=== PATIENT | female | born 1990 | race Caucasian/White ===

== ENCOUNTER 2017-02-10 21:30 | Emergency (ER) | payer OTHER ==
[~2017-02-10] VITALS: Ht 167.6 cm; Wt 61.2 kg
--- NOTE | ~2017-02-10 | EKG ---
PATIENT: BEV HARE UNIT #: [id number] Ventricular Rate: 128 BPM Atrial Rate: 128 BPM P-R Interval: 148 ms QRS Duration: 86 ms Q-T Interval: 290 ms QTC Calculation(Bezet): 423 ms P Cos Cob: 57 degrees Calculated R Cos Cob: 51 degrees Calculated T Cos Cob: 38 degrees Diagnosis Line: Sinus tachycardia Diagnosis Line: Otherwise normal ECG Diagnosis Line: When compared with ECG of 30-MAR-2013 22:21, Diagnosis Line: Vent. rate has increased BY 44 BPM Diagnosis Line: Confirmed by KARSTEN MADDEN MD ([id number]) on 02/13/2017 Diagnosis Line: 4:37:16 PM INTERPRETING MD: CHANO KERN
--- NOTE | ~2017-02-10 | CR72 ---
[facility]. [facility] A Service of [facility] & [facility] RADIOLOGY TEXT RESULTS PATIENT: BEV HARE LOCATION: SED : [birth year] UNIT #: [id number] AGE: [address]: Aiden Asher MD SEX: F ORDER DR: [id number] [place] [id number] E MR#: [id number] Acc #: [id number] NAME: BEV HARE : 1990 SEX: F STUDY DATE/TIME: 02/10/2017 23:38 UNIT: SED ROOM: STUDY DESCRIPTION: CR Chest Single View Portable Attending Physician: Aiden Asher M.D. Ordering Physician: Aiden Asher M.D. Primary Care Physician: Primary Care Physician No MEDICAL IMAGING REPORT This report is preliminary unless electronic signature is present. EXAM Portable chest 02/10 23:38 INDICATION Fever, headache and chest pain and left arm pain for 1 week, worse today. FINDINGS AP upright view of the chest compared with 03/30/2013. Cardiac and mediastinal contours are normal. Lungs are clear. No pneumothorax. Ring like radiopaque foreign body in the mid lower chest is presumably external to the patient. IMPRESSION No active disease. Ring like radiopaque density over the lower mid chest is presumably external to the patient. Correlate clinically. Dictated by... Nico Marte Jr., M.D. THIS IS AN ELECTRONICALLY VERIFIED REPORT Nico Marte Jr., M.D. at 02/12/2017 4:21 AM TIM/koby TD: 02/11/2017 06:42 JOB #: [id number] MEDICAL IMAGING REPORT Page 1 of 1
--- NOTE | ~2017-02-10 | CT71 ---
[facility] A Service of [facility] RADIOLOGY TEXT RESULTS PATIENT: BEV HARE LOCATION: SED : [birth year] UNIT #: [id number] AGE: [address]: Aiden Asher MD SEX: F ORDER DR: [id number] [place] [id number] E MR#: [id number] Acc #: [id number] NAME: BEV HRAE. : 1990 SEX: F STUDY DATE/TIME: 02/10/2017 23:42 UNIT: SED ROOM: STUDY DESCRIPTION: CT Head Wo Contrast Attending Physician: Aiden Asher M.D. Ordering Physician: Aiden Asher M.D. Primary Care Physician: No Primary Care Physician MEDICAL IMAGING REPORT This report is preliminary unless electronic signature is present. EXAM Head CT 02/10 23:42. INDICATIONS Fever and headache with left arm pain for 1 week. Symptoms worsened today. COMPARISON None. TECHNIQUE This CT exam was performed with one or more of the following radiation dose reduction techniques: Automatic exposure control, adjustment of mA and/or kV according to patient size, and iterative reconstruction. FINDINGS Axial images were obtained from the base to the vertex without contrast. Ventricular size and configuration are within normal limits. No acute infarct or hemorrhage is seen. There are no masses. There is no skull fracture. There is an old left lamina papyracea fracture. IMPRESSION Old left lamina papyracea fracture, otherwise negative head CT. Dictated by... Nico Marte Jr., M.D. THIS IS AN ELECTRONICALLY VERIFIED REPORT Nico Marte Jr., M.D. at 02/12/2017 4:21 AM TIM/hailee TD: 02/11/2017 06:46 JOB #: [id number] [facility] A Service of [facility] RADIOLOGY TEXT RESULTS PATIENT: BEV HARE LOCATION: SED : [birth year] UNIT #: [id number] AGE: [address]: Aiden Asher MD SEX: F ORDER DR: MEDICAL IMAGING REPORT Page 1 of 1
[~2017-02-10 21:30] MED LIST: ALBUTEROL17 GM INH; BACTRIM DS TABL1 TA1 PO; CIPRO PO; PREDNISONE PO; PYRIDIUM PO
[2017-02-10 23:20] LABS: BASOPHIL% 0.2 % (0-2.5); EOSINOPHIL% 0.2 % (0.0-7.0); HEMATOCRIT 39.1 % (35.0-45.0); HEMOGLOBIN 13.4 gm/dL (12.0-16.0); LYMPHOCYTE# 0.3 X10e3 (1.0-3.5); LYMPHOCYTE% 3.5 % (17.0-45.0); MEAN CELL VOLUME 81.6 FL (83-96); MEAN CORPUSCULAR HEMOGLOBIN 27.9 PG (28-34); MEAN CORPUSCULAR HGB CONC 34.2 g/dL (30-36); MEAN PLATELET VOLUME 9.7 FL (6.5-11.5); MONOCYTE% 0.2 % (3.0-12.0); NEUTROPHIL# 7.1 X10e3 (1.5-7.1); NEUTROPHIL% 95.9 % (40-75); PLATELET COUNT 152 X10e3 (140-420); RED BLOOD COUNT 4.79 X10e (3.90-5.30); RED CELL DISTRIBUTION WIDTH 14.3 % (11.0-15.5); WHITE BLOOD COUNT 7.4 X10e3 (4.0-10.5)
[2017-02-10 23:22] LABS: DIFF IND NO
[2017-02-10 23:27] LABS: INR 1.1; PROTHROMBIN TIME (PATIENT) 12.9 SECONDS (9.5-12.4)
[2017-02-10 23:28] LABS: URINE SOURCE CLEAN CATCH
[2017-02-10 23:30] LABS: URINE APPEARANCE CLEAR; URINE BILIRUBIN NEG (NEG); URINE BLOOD NEG (NEG); URINE COLOR YELLOW; URINE GLUCOSE NEG (NORM); URINE KETONE TRACE (NEG); URINE LEUKOCYTE ESTERASE TRACE (NEG); URINE NITRATE NEG (NEG); URINE PROTEIN NEG (NEG)
[2017-02-10 23:31] LABS: CULTURE INDICATED? NO; MICRO INDICATED? YES; URINE BACTERIA NEG (NEG); URINE RBC NEG /[HPF] (0-2); URINE WBC 0-2 /[HPF] (0-5)
[2017-02-10 23:32] LABS: URINE MUCUS PRESENT; URINE SQUAMOUS EPITHELIAL CELL OCCAS /[HPF]
[2017-02-10 23:34] LABS: PARTIAL THROMBOPLASTIN TIME 22.8 SECONDS (25.6-38.1)
[2017-02-10 23:37] LABS: ALBUMIN SERUM 3.8 g/dL (3.5-5.0); ALKALINE PHOSPHATASE 85 U/L (32-92); ALT (SGPT) 41 U/L (10-40); AST (SGOT) 55 U/L (10-42); BILIRUBIN,TOTAL 0.5 mg/dL (0.2-2.0); BLOOD UREA NITROGEN 14 mg/dL (9-23); BUN/CREATININE RATIO 15.55; CALCIUM SERUM 8.6 mg/dL (8.4-10.2); CARBON DIOXIDE 27 mmol/L (22-31); CHLORIDE 101 mmol/L (100-111); CREATININE SERUM 0.9 mg/dL (0.6-1.4); GLOM FILT RATE Estimated 86.5 mL/min (>60); GLUCOSE FASTING 99 mg/dL (70-110); POTASSIUM 3.5 mmol/L (3.5-5.1); PROTEIN TOTAL SERUM 6.8 g/dL (6.0-8.3); SODIUM 137 mmol/L (135-145)
[2017-02-10 23:39] LABS: BILIRUBIN, DIRECT <0.1 mg/dL (0.0-0.2); BILIRUBIN,INDIRECT 0.4 mg/dL (0.0-0.9)
[2017-02-10 23:41] LABS: AMPHETAMINE POS (NEG); BARBITURATES NEG (NEG); BENZODIAZEPINES NEG (NEG); COCAINE NEG (NEG); MARIJUANA NEG (NEG); OPIATES POS (NEG); TRICYCLIC ANTIDEPRESSANTS NEG (NEG); U METHADONE NEG (NEG)
[2017-02-11 13:39] LABS: POC - CKMB <1.0 ng/mL (0.0-7.9); POC - MYOGLOBIN 41.1 ng/mL (0.0-169.0); POC - TROPONIN <0.05 ng/mL (<=0.05)
== END 2017-02-11 02:40 | disposition home or self-care (01) ==
LOC: SED 21:30
PROVIDERS: Emergency Medicine
DX: F19.10 Other psychoactive substance abuse, uncomplicated (principal); R51 Headache; R10.9 Unspecified abdominal pain; Z91.040 Latex allergy status
CPT/HCPCS: 36415; 70450; 71010; 80048; 80076; 80307; 81003; 82553; 83605; 83690; 83874; 84484; 84703; 85025; 85610; 85730; 87040; 87077; 87181; 93005; 96360; 99285